=== PATIENT | female | born 1950 | race Caucasian/White ===

== ENCOUNTER 2017-08-30 10:42 | Outpatient (CLI) | payer MEDICARE | END 2017-08-30 10:43 | disposition home or self-care (01) | LOC: BICULT 10:42 | PROVIDERS: ATTEND Family Medicine | DX: E04.1 Nontoxic single thyroid nodule (principal); E04.2 Nontoxic multinodular goiter | CPT/HCPCS: 76536 ==

== ENCOUNTER 2017-10-07 12:21 | Outpatient (CLI) | payer MEDICARE | END 2017-10-07 12:22 | disposition home or self-care (01) | LOC: BICMAMMO 12:21 | PROVIDERS: ATTEND Obstetrics & Gynecology | DX: Z12.31 Encounter for screening mammogram for malignant neoplasm of breast (principal) | CPT/HCPCS: 77063; 77067 ==

== ENCOUNTER 2018-08-29 13:47 | Outpatient (CLI) | payer MEDICARE ==
--- NOTE | 2018-08-29 16:09 | ULT ---
THYROID ULTRASOUND: 08/29/18 HISTORY: Thyroid nodules. COMPARISON: 08/23/16 TECHNIQUE: Multiplanar villalpando scale and color doppler images were obtained in a thyroid ultrasound. FINDINGS: There is a large nodule in the right thyroid lobe which is predominantly solid. There are benign appe aring shadowing calcifications within this nodule. The nodule currently measures 3.3 x 2.1 x 2.6 cm i n size which has slightly enlarged compared to the prior examination. In the left thyroid lobe, ther e is a mixed solid and cystic nodule measuring 2.3 x 1.5 x 1.6 cm in size. This also has slightly enl arged compared to the prior examination. No suspicious calcifications are seen within this nodule. Both the nodules are well circumscribed and wider than tall. These nodules are isoechoic compared to the background thyroid parenchyma. The right and left lobes measure 4.8 and 4.5 cm in length on the right and left, respectively. IMPRESSION: There has been slight enlargement in the bilateral thyroid nodules. Both of these nodules are TIRADS category 2 lesions. Therefore, these lesions are considered benign and FNA is not required. POS: [facility]
== END 2018-08-29 13:48 | disposition home or self-care (01) ==
LOC: BICULT 13:47
PROVIDERS: ATTEND Family Medicine
DX: E04.1 Nontoxic single thyroid nodule (principal); E04.2 Nontoxic multinodular goiter
CPT/HCPCS: 76536

== ENCOUNTER 2018-10-17 07:48 | Outpatient (CLI) | payer MEDICARE ==
--- NOTE | 2018-10-18 11:12 | MMO ---
Bilateral MAMMO Bilat Screen [facility]. CLINICAL HISTORY: Patient is 68 years old and is seen for screening. The patient has no family history of breast cancer. The patient has no personal history of cancer. VIEWS: The views performed were: bilateral craniocaudal with tomosynthesis and bilateral mediolateral oblique with tomosynthesis. FILMS COMPARED: The present examination has been compared to prior imaging studies performed at [facility] on 09/02/2016 and 10/07/2017, and at [facility] on 06/02/2015. MAMMOGRAM FINDINGS: There are scattered fibroglandular densities. There are benign appearing calcifications seen in both breasts. There are no suspicious masses, suspicious calcifications, or new areas of architectural distortion. IMPRESSION: THERE IS NO MAMMOGRAPHIC EVIDENCE OF MALIGNANCY. A ROUTINE FOLLOW-UP MAMMOGRAM IN 1 YEAR IS RECOMMENDED. THE RESULTS OF THIS EXAM WERE SENT TO THE PATIENT. ACR BI-RADS Category 2 - Benign finding MAMMOGRAPHY NOTE: 1. A negative mammogram report should not delay a biopsy if a dominant of clinically suspicious mass is present. 2. Approximately 10% to 15% of breast cancers are not detected by mammography. 3. Adenosis and dense breasts may obscure an underlying neoplasm.
== END 2018-10-17 07:49 | disposition home or self-care (01) ==
LOC: BICMAMMO 07:48
PROVIDERS: ATTEND Family Medicine
DX: Z12.31 Encounter for screening mammogram for malignant neoplasm of breast (principal)
CPT/HCPCS: 77063; 77067

== ENCOUNTER 2020-03-12 09:13 | Outpatient (CLI) | payer MEDICARE ==
--- NOTE | 2020-03-12 10:22 | ULT ---
THYROID ULTRASOUND: COMPARISON: 08/29/2018. FINDINGS: Thyroid isthmus: 0.28 cm. Right thyroid lobe: 2.8 x 4.6 x 2.3 cm. Left thyroid lobe: 1.9 x 4.4 x 1.9 cm. Thyroid nodules: Right thyroid lobe: Predominantly solid nodule occupies the majority of the mid to lower pole of the right thyroid lobe. Nodule measures 3.2 x 2.7 x 2.0 cm. Left thyroid lobe: Predominantly solid nodule occupying the majority the left thyroid lobe. Nodule me asures 1.7 x 2.4 x 1.5 cm. There is a mixed solid cystic nodule in the lower pole of the left upper lobe measuring 0.8 x 0.9 x 0.8 cm. IMPRESSION: 1. Predominantly solid nodules in the left and right thyroid lobe which do demonstrate stability. How ever, both nodules have a TIRADS level TR3, mildly suspicious. Fine-needle aspiration of the nodule in the right thyroid lobe and left thyroid lobe is recommended. 2. There is a new solid nodule in the lower pole the left thyroid lobe which can be followed up in on e year. Transcribed Date/Time: 03/12/2020 10:32 AM
== END 2020-03-12 09:14 | disposition home or self-care (01) ==
LOC: SCSULT 09:13
PROVIDERS: ATTEND Family Medicine
DX: E04.2 Nontoxic multinodular goiter (principal)
CPT/HCPCS: 76536

== ENCOUNTER 2020-05-16 08:34 | Outpatient (CLI) | payer MEDICARE ==
--- NOTE | 2020-05-16 09:11 | MMO ---
Bilateral MAMMO Bilat Screen [facility]. CLINICAL HISTORY: Patient is 69 years old and is seen for screening. The patient has no family history of breast cancer. The patient has no personal history of cancer. VIEWS: The views performed were: bilateral craniocaudal with tomosynthesis and bilateral mediolateral oblique with tomosynthesis. FILMS COMPARED: The present examination has been compared to prior imaging studies performed at [facility] on 09/02/2016, 10/07/2017 and 10/17/2018. This study has been interpreted with the assistance of computer-aided detection. MAMMOGRAM FINDINGS: There are scattered fibroglandular densities. There are stable benign appearing calcifications seen in both breasts. There are no suspicious masses, suspicious calcifications, or new areas of architectural distortion. IMPRESSION: THERE IS NO MAMMOGRAPHIC EVIDENCE OF MALIGNANCY. A ROUTINE FOLLOW-UP MAMMOGRAM IN 1 YEAR IS RECOMMENDED. THE RESULTS OF THIS EXAM WERE SENT TO THE PATIENT. ACR BI-RADS Category 2 - Benign finding MAMMOGRAPHY NOTE: 1. A negative mammogram report should not delay a biopsy if a dominant of clinically suspicious mass is present. 2. Approximately 10% to 15% of breast cancers are not detected by mammography. 3. Adenosis and dense breasts may obscure an underlying neoplasm. Reported by: KENNEDY PARR MD Electonically Signed: [id number]
== END 2020-05-16 08:35 | disposition home or self-care (01) ==
LOC: BICMAMMO 08:34
PROVIDERS: ATTEND Family Medicine
DX: Z12.31 Encounter for screening mammogram for malignant neoplasm of breast (principal)
CPT/HCPCS: 77063; 77067

== ENCOUNTER 2020-08-19 07:57 | Outpatient (CLI) | payer MEDICARE ==
--- NOTE | 2020-08-19 08:35 | ULT ---
BILATERAL RENAL ULTRASOUND: HISTORY: hypertension, recurrent UTIs FINDINGS: The right kidney measures 10.3 cm in length and the left kidney measures 8.4 cm in length. There are multiple cysts in the left kidney measuring up to 1.5 cm there is mild right-sided hydronephrosis. No left-sided hydronephrosis or right-sided mass is seen. The urinary bladder is unremarkable. There is incomplete emptying of the urinary bladder residual vol ume of 104 cc. The prevoid volume measures 165 cc. IMPRESSION: 1. Mild right hydronephrosis 2. Left renal cysts 3. Significant postvoid residual bladder volume.
== END 2020-08-19 07:58 | disposition home or self-care (01) ==
LOC: BICULT 07:57
PROVIDERS: ATTEND Family Medicine
DX: N39.0 Urinary tract infection, site not specified (principal); I10 Essential (primary) hypertension; N13.30 Unspecified hydronephrosis; N28.1 Cyst of kidney, acquired; R39.198 Other difficulties with micturition
CPT/HCPCS: 76770

== ENCOUNTER 2021-05-22 10:52 | Outpatient (CLI) | payer MEDICARE | END 2021-05-22 10:53 | disposition home or self-care (01) | LOC: BICMAMMO 10:52 | PROVIDERS: ATTEND Family Medicine | DX: Z12.31 Encounter for screening mammogram for malignant neoplasm of breast (principal) | CPT/HCPCS: 77063; 77067 ==

== ENCOUNTER 2021-10-22 14:30 | Outpatient (CLI) | payer MEDICARE | END 2021-10-22 14:31 | disposition home or self-care (01) | LOC: ULT 14:30 | PROVIDERS: ATTEND Family Medicine | DX: E04.2 Nontoxic multinodular goiter (principal); E07.89 Other specified disorders of thyroid | CPT/HCPCS: 76536 ==

== ENCOUNTER 2022-11-30 13:59 | Outpatient (CLI) | payer MEDICARE | END 2022-11-30 14:00 | disposition home or self-care (01) | LOC: BICULT 13:59 | PROVIDERS: ATTEND Family Medicine | DX: N28.1 Cyst of kidney, acquired (principal); E04.1 Nontoxic single thyroid nodule; N13.30 Unspecified hydronephrosis | CPT/HCPCS: 76536; 76770 ==

== ENCOUNTER 2023-03-30 12:35 | Outpatient (CLI) | payer MEDICARE ==
[~2023-03-30 12:35] MED LIST: Furosemide 40 MG/4 ML VIAL ONE
== END 2023-03-30 12:36 | disposition home or self-care (01) ==
LOC: CT 12:35
PROVIDERS: ATTEND Urology
DX: N13.30 Unspecified hydronephrosis (principal); N28.1 Cyst of kidney, acquired; N28.89 Other specified disorders of kidney and ureter
CPT/HCPCS: 74176; 78708; A4641; A9562; J1940

== ENCOUNTER 2024-05-23 07:36 | Outpatient (CLI) | payer MEDICARE | END 2024-05-23 07:37 | disposition home or self-care (01) | LOC: BICULT 07:36 | PROVIDERS: ATTEND Family Medicine | DX: E04.2 Nontoxic multinodular goiter (principal); E04.1 Nontoxic single thyroid nodule | CPT/HCPCS: 76536 ==

== ENCOUNTER 2024-08-29 13:45 | Outpatient (CLI) | payer MEDICARE | END 2024-08-29 13:46 | disposition home or self-care (01) | LOC: BICMAMMO 13:45 | PROVIDERS: ATTEND Family Medicine | DX: Z12.31 Encounter for screening mammogram for malignant neoplasm of breast (principal) | CPT/HCPCS: 77063; 77067 ==